=== PATIENT | male | born 1990 | race Caucasian/White ===

== ENCOUNTER → 2019-03-30 18:01 | Emergency (ER) | payer OTHER ==
[~2019-03-30] VITALS: Ht 167.6 cm; Wt 77.1 kg
[~2019-03-30 18:01] MED LIST: Monodox100 MG PO
== END | disposition home or self-care (01) ==
LOC: ER 18:01
DX: L02.414 Cutaneous abscess of left upper limb (principal); L03.114 Cellulitis of left upper limb; F17.200 Nicotine dependence, unspecified, uncomplicated
CPT/HCPCS: 10060; 99282-25

== ENCOUNTER 2019-04-01 17:32 | Emergency (ER) | payer OTHER ==
[~2019-04-01] VITALS: Ht 167.6 cm; Wt 77.1 kg
== END 2019-04-01 19:45 | disposition home or self-care (01) ==
LOC: ER 17:32
DX: L02.414 Cutaneous abscess of left upper limb (principal)
CPT/HCPCS: 10061; 99282-25